=== PATIENT | female | born 1970 | race Caucasian/White ===

== ENCOUNTER 2021-08-08 17:36 | Inpatient (IN) | payer OTHER, SELFPAY ==
--- NOTE | ~2021-08-08 | CT_ITS ---
EXAMINATION: CT ABDOMEN AND PELVIS WITH CONTRAST CLINICAL INFORMATION: Lower abdominal pain COMPARISON: 10/06/2016 TECHNIQUE: Multidetector volumetric images were obtained from the superior aspect of the liver through the pubic symphysis following administration 85 mL of Omnipaque 350 intravenous contrast. Sagittal and coronal reformatted images were obtained on the technologist's workstation. Oral contrast: No This CT examination was performed using dose optimization techniques as appropriate, variously including the following: *Automated exposure control *Adjustment of mA and/or kV according to patient size (this includes techniques or standardized protocols for targeted exams where dose is matched to indication/reason for exam; i.e. extremities or head) *Use of iterative reconstruction technique DLP: 891 mGy-cm FINDINGS: LUNG BASES: The visualized lung bases are unremarkable. LIVER, GALLBLADDER, AND BILIARY TREE: The liver is normal in size, shape, and attenuation. No focal hepatic lesion or biliary ductal dilatation is present. The gallbladder is unremarkable with no evidence of radiopaque gallstones, gallbladder wall thickening, or obvious pericholecystic inflammatory changes. PANCREAS: Unremarkable. SPLEEN: Unremarkable. ADRENAL GLANDS: Unremarkable. KIDNEYS AND URETERS: The kidneys are normal in size, shape, and attenuation. No hydronephrosis, hydroureter, or calculi seen. No perinephric stranding. BLADDER: Unremarkable. GASTROINTESTINAL TRACT: No evidence of bowel obstruction. No abnormal bowel wall thickening is seen. The appendix is fluid-filled and dilated to approximately 1.2 cm. Few appendicoliths are noted, and there is surrounding fat stranding suspicious for acute appendicitis. No free fluid or free air is seen. ABDOMINAL WALL: No significant hernia is appreciated. LYMPH NODES: Normal. VASCULAR: Unremarkable. PELVIC VISCERA: Right adnexal cyst measures approximately 3 cm, likely ovarian and physiologic. OSSEOUS STRUCTURES: There is facet arthropathy of the lower lumbar spine. CT/CT abdomen pelvis w con IMPRESSION: Findings suspicious for acute appendicitis as described above. Fleischner guidelines were followed.
[2021-08-08 19:45] VITALS: BP 156/87; PULSE 104; RESP 16; TEMP 36.8; O2SAT 98; BMI 39.9
--- NOTE | 2021-08-08 23:50 | ED.ABDPAIN ---
HPI - Abdominal Pain General Chief Complaint: Abdominal Pain Stated Complaint: stomach pains/nausea Time Seen by Provider: 08/08/21 21:30 Source: patient Mode of arrival: ambulatory History of Present Illness HPI narrative: 50-year-old female who presents with mid abdominal discomfort that started approximately 1230 this afternoon is been associated with significant amount of nausea. Patient states that the pain kind of comes in waves and reports she does have a history of renal colic as well as having a history of . She states that she had a bowel movement this morning but has reported decreased flatus throughout the day. She reports chills. Related Data Allergies Allergy/AdvReac Type Severity Reaction Status Date / Time No Known Allergies Allergy Unverified 12/25/19 16:00 [No Known Allergies*] Review of Systems Review of Systems Pertinent positives and negatives as stated in HPI 10 point review of systems is otherwise negative. PMFSH Past Medical History Source: nursing notes reviewed Social History Social History Alcohol intake: former Patient Tobacco Use Status: Never used Tobacco Smoked in Last 30 Days: No Use of substances other than those prescribed or required for medical reasons: No Advance Directives: No Advance Directives Information Provided: Yes Physical Exam ED Vital Signs: Vital Signs - 24 hr 08/08/21 19:45 08/09/21 00:20 08/09/21 02:43 Temperature 98.3 F 99.1 F Pulse Rate 104 H 73 71 Respiratory Rate 16 18 14 Blood Pressure 156/87 H 136/77 126/67 Pulse Oximetry 98 100 98 BMI result Body Mass Index 39.9 VITAL SIGNS: Reviewed. GENERAL: Well developed, well nourished, in no acute distress. HEAD: Normocephalic/atraumatic EYES: PERRLA, EOMI EARS: Ext canals without abnormality OROPHARYNX: no oral lesions noted, posterior pharynx clear LUNGS: Normal breath sounds. No adventitious sounds or accessory muscle use. SpO2<98> CARDIOVASCULAR: Regular rate and rhythm without noted murmurs ABDOMEN: Soft, pain on palpation across lower abdomen without rebound, non-distended with hypoactive bowel sounds. MUSCULOSKELETAL: No tenderness, deformities, or effusions noted on gross inspection. EXTREMITIES: No cyanosis, clubbing or edema. SKIN: Inspection of the skin reveals no rashes NEUROLOGIC: Alert and oriented x 4. Strength and sensation to light touch were grossly intact x 4. Course Course Course Narrative: 50-year-old female with history and clinical presentation suggestive of possible SBO, diverticulitis, but doubt renal colic at this time. 0130: I suspect infection Review of all investigations consistent with acute appendicitis. MDM - Abdominal Pain Lab Data Result diagrams: 08/09/21 00:03 08/09/21 00:03 Labs: Lab Results 08/09/21 08/09/21 08/09/21 Range/Units 00:03 00:03 00:03 WBC 11.4 H (4.8-10.8) X10*3/uL RBC 4.21 (4.20-5.50) X10*6/uL Hgb 10.9 L (12.0-16.0) g/dl Hct 33.6 L (37.0-47.0) % MCV 79.8 L (80.0-98.0) fL MCH 25.9 L (27.0-33.0) pg MCHC 32.4 (31.0-35.0) g/dl RDW 15.4 (11.0-16.0) % Plt Count 244 (160-400) X10*3/uL MPV 10.3 (9.4-12.3) fL Immature Gran % (Auto) 0.3 (0.0-0.4) % Neut % (Auto) 82.9 H (45-73) % Lymph % (Auto) 10.5 L (20-40) % [place] % (Auto) 5.9 (2-11) % Eos % (Auto) 0.2 (0-4) % Baso % (Auto) 0.2 (0-2) % Lymph # (Auto) 1.2 (1.2-4.9) X10*3/uL [place] # (Auto) 0.7 (0.1-1.2) X10*3/uL Eos # (Auto) 0.0 (0.0-0.4) X10*3/uL Baso # (Auto) 0.0 (0.0-0.2) X10*3/uL Abs Immat Gran (auto) 0.04 H (0.00-0.03) X10*3/uL Absolute Neuts (auto) 9.5 H (2.0-8.3) x10*3/uL Absolute Nucleated RBC 0.000 (0.0-0.012) X10*3/uL Nucleated RBC % (auto) 0.0 (0.0-0.2) /100WBC Sodium 136 (135-145) mmol/L Potassium 3.5 (3.3-5.1) mmol/L Chloride 102 (96-108) mmol/L Carbon Dioxide 25 (22-29) mmol/L Anion Gap 13 (12-20) BUN 7 L (9-16) mg/dL Creatinine 0.77 (0.5-1.4) mg/dL Estim Creat Clear Calc 98.2 Estimated GFR > 60 Random Glucose 110 (60-115) mg/dL Lactic Acid 1.0 (0.5-2.0) mmol/L Calcium 9.3 (8.4-10.2) mg/dL Total Bilirubin 0.7 (0.0-1.0) mg/dL AST 14 (5-31) U/L ALT 15 (0-31) U/L Alkaline Phosphatase 76 (39-117) U/L Total Protein 7.7 (6.5-8.0) g/dL Albumin 4.2 (3.5-5.0) g/dL Lipase 12 (8-78) U/L Urine Color Urine Appearance Urine pH (5.0-8.0) Ur Specific [place] (1.005-1.025) Urine Protein (NEG-TRACE) MG/DL Urine Glucose (UA) (NEG) MG/DL Urine Ketones (NEG) MG/DL Urine Blood (NEG) Urine Nitrite (NEG) Ur Leukocyte Esterase (NEG) Urine Test (NEGATIVE) 08/09/21 08/09/21 Range/Units 00:03 00:03 WBC (4.8-10.8) X10*3/uL RBC (4.20-5.50) X10*6/uL Hgb (12.0-16.0) g/dl Hct (37.0-47.0) % MCV (80.0-98.0) fL MCH (27.0-33.0) pg MCHC (31.0-35.0) g/dl RDW (11.0-16.0) % Plt Count (160-400) X10*3/uL MPV (9.4-12.3) fL Immature Gran % (Auto) (0.0-0.4) % Neut % (Auto) (45-73) % Lymph % (Auto) (20-40) % [place] % (Auto) (2-11) % Eos % (Auto) (0-4) % Baso % (Auto) (0-2) % Lymph # (Auto) (1.2-4.9) X10*3/uL [place] # (Auto) (0.1-1.2) X10*3/uL Eos # (Auto) (0.0-0.4) X10*3/uL Baso # (Auto) (0.0-0.2) X10*3/uL Abs Immat Gran (auto) (0.00-0.03) X10*3/uL Absolute Neuts (auto) (2.0-8.3) x10*3/uL Absolute Nucleated RBC (0.0-0.012) X10*3/uL Nucleated RBC % (auto) (0.0-0.2) /100WBC Sodium (135-145) mmol/L Potassium (3.3-5.1) mmol/L Chloride (96-108) mmol/L Carbon Dioxide (22-29) mmol/L Anion Gap (12-20) BUN (9-16) mg/dL Creatinine (0.5-1.4) mg/dL Estim Creat Clear Calc Estimated GFR Random Glucose (60-115) mg/dL Lactic Acid (0.5-2.0) mmol/L Calcium (8.4-10.2) mg/dL Total Bilirubin (0.0-1.0) mg/dL AST (5-31) U/L ALT (0-31) U/L Alkaline Phosphatase (39-117) U/L Total Protein (6.5-8.0) g/dL Albumin (3.5-5.0) g/dL Lipase (8-78) U/L Urine Color YELLOW Urine Appearance CLEAR Urine pH 7.5 (5.0-8.0) Ur Specific [place] 1.015 (1.005-1.025) Urine Protein NEG (NEG-TRACE) MG/DL Urine Glucose (UA) NEG (NEG) MG/DL Urine Ketones 5 (NEG) MG/DL Urine Blood NEG (NEG) Urine Nitrite NEG (NEG) Ur Leukocyte Esterase NEG (NEG) Urine Test NEGATIVE (NEGATIVE) Discharge Plan Discharge Clinical Impression: Acute appendicitis Patient Disposition: Admitted As Inpatient
[2021-08-09] VITALS (15 sets, daily range): BP systolic 118–141; BP diastolic 52–78; PULSE 63–93; RESP 14–20; TEMP 36.2–37.3; O2SAT 94–100
[2021-08-09 00:12] LABS: MANUAL DIFF FLAG NO
[2021-08-09 00:14] LABS: Basophils Percent Auto 0.2 % (0-2); Eosinophils Percent Auto 0.2 % (0-4); Hematocrit 33.6 % (37.0-47.0); Hemoglobin 10.9 g/dl (12.0-16.0); Imm Gran Abs Auto 0.04 X10*3/uL (0.00-0.03); Imm Gran Pct Auto 0.3 % (0.0-0.4); Lymphocytes Absolute Auto 1.2 X10*3/uL (1.2-4.9); Lymphocytes Percent Auto 10.5 % (20-40); Mean Corpuscular HGB Conc 32.4 g/dl (31.0-35.0); Mean Corpuscular Hemoglobin 25.9 pg (27.0-33.0); Mean Corpuscular Volume 79.8 fL (80.0-98.0); Mean Platelet Volume 10.3 fL (9.4-12.3); Monocytes Absolute Auto 0.7 X10*3/uL (0.1-1.2); Monocytes Percent Auto 5.9 % (2-11); Neutrophils Absolute Auto 9.5 x10*3/uL (2.0-8.3); Neutrophils Percent Auto 82.9 % (45-73); Platelet Count 244 X10*3/uL (160-400); Red Blood Count 4.21 X10*6/uL (4.20-5.50); Red Cell Distribution Width 15.4 % (11.0-16.0); White Blood Count 11.4 X10*3/uL (4.8-10.8)
[2021-08-09] MEDS: Ketorolac Tromethamine 30 MG/ML VIAL 15 MG IVPUSH (00:14)
[2021-08-09 00:21] LABS: Appearance Urine CLEAR; Color Urine YELLOW; Glucose Urine UA NEG (NEG); Leukocyte Esterase Urine NEG (NEG); Nitrite Urine NEG (NEG); PH 7.5 (5.0-8.0); Specific Gravity - Urine 1.015 (1.005-1.025); Urine Blood NEG (NEG); Urine Ketones 5 MG/DL (NEG); Urine Protein NEG (NEG-TRACE)
[2021-08-09 00:22] LABS: UPreg QC Valid YES; Urine Pregnancy NEGATIVE (NEGATIVE)
[2021-08-09 00:28] LABS: Alanine Aminotransferase 15 U/L (0-31); Albumin Level 4.2 g/dL (3.5-5.0); Alkaline Phosphatase 76 U/L (39-117); Anion Gap 13 (12-20); Aspartate Amino Transferase 14 U/L (5-31); Bilirubin Total 0.7 mg/dL (0.0-1.0); Blood Urea Nitrogen 7 mg/dL (9-16); Calcium 9.3 mg/dL (8.4-10.2); Carbon Dioxide 25 mmol/L (22-29); Chloride 102 mmol/L (96-108); Creatinine Clr Calc Pharmacy 98.2; Estimated Glomerular Filt Rate > 60; Glucose Random 110 mg/dL (60-115); Lipase 12 U/L (8-78); Potassium 3.5 mmol/L (3.3-5.1); Sodium 136 mmol/L (135-145); Total Protein 7.7 g/dL (6.5-8.0)
[2021-08-09] MEDS: 0.9 % Sodium Chloride 1,000 ML 999 ML IV (01:30)
[2021-08-09] MEDS: iohexoL 350 MG/ML 100 ML INFUS..BTL 85 ML IV (01:54)
--- NOTE | 2021-08-09 03:06 | PM.HPGS ---
History of Present Illness History of Present Illness Date of Service: 08/09/21 Chief complaint: Acute Appendicitis Narrative: Shari Gonzales is a 50 year old female presenting with complaints of abdominal pain in the lower abdomen since 12 pm yesterday. She intially thought the pain was related to kidney stones which she has had in the past. The pain was much more severe and associated with nausea and vomiting therefore she subsequently presented to the emergency department for further evaluation. She reports the pain mainly in the periumbilical region radiating into the lower quadrants bilaterally. The pain increases with movement and walking. She denied fever or chills. In the emergency department she was noted to have an elevated WBC. CT of the abdomen pelvis confirmed a dilated/fluid-filled appendix with a fecalith suggestive of acute appendicitis. Review of Systems Constitutional: Constitutional: Denies chills, Denies fever(s), Denies headache(s) and Reports poor appetite ENT: Denies dizziness and Denies headache(s) Cardiovascular: Cardiovascular: Denies chest pain, Denies rapid heart rate, Denies palpitations and Denies slow heart rate Respiratory: Respiratory: Denies chest congestion, Denies cough, Denies pain on inspiration and Denies wheezing Gastrointestinal: Gastrointestinal: Reports abdominal pain, Denies bloating, Denies change in stool character, Denies constipation, Denies diarrhea, Reports nausea, Reports vomiting and Denies hematemesis Musculoskeletal: Musculoskeletal: Denies back pain, Denies arthralgias, Denies joint swelling and Denies numbness Integumentary/Breasts: Skin/Breast: Denies change in pigmentation, Denies erythema and Denies rash Neurologic: Denies dizziness, Denies headache(s) and Denies numbness Psychiatric: Psychiatric: Denies anxiety and Denies depression Endocrine: Endocrine: Denies palpitations Hematologic/Lymphatic: Hematologic/Lymphatic: Denies easy bleeding, Denies easy bruising and Denies lymphadenopathy Allergic/Immunologic: Allergic/Immunologic: Denies wheezing PMFSH Past Medical History Medical History Nephrolithiasis Surgical History Surgical History Previous section Social History Social History Alcohol intake: former Patient Tobacco Use Status: Never used Tobacco Smoked in Last 30 Days: No Use of substances other than those prescribed or required for medical reasons: No Advance Directives: No Advance Directives Information Provided: Yes Meds Allergies Allergy/AdvReac Type Severity Reaction Status Date / Time No Known Allergies Allergy Unverified 12/25/19 16:00 [No Known Allergies*] Active Medications: Current Medications Piperacillin Sod/Tazobactam (Sod 3.375 gm/ Sodium Chloride) 50 mls @ 100 mls/hr IV ONCE ONE Stop: 08/09/21 03:18 Home Medications Medication Instructions Recorded Confirmed Last Taken Type amlodipine 5 mg tablet 1 tab PO DAILY 08/09/21 Unknown History ascorbic acid (vitamin C) 500 mg 1 tab PO DAILY 08/09/21 Unknown History tablet (Vitamin C) citalopram 20 mg tablet 1 tab PO DAILY 08/09/21 Unknown History folic acid 400 mcg tablet 1 tab PO DAILY 08/09/21 Unknown History metformin 500 mg tablet,extended 2 tab PO DAILY 08/09/21 Unknown History release 24 hr metoprolol succinate 25 mg 1 tab PO DAILY 08/09/21 Unknown History tablet,extended release 24 hr omeprazole 20 mg capsule,delayed 1 cap PO DAILY 08/09/21 Unknown History release polysaccharide iron complex 150 mg 1 cap PO DAILY 08/09/21 Unknown History iron capsule sennosides 8.6 mg-docusate sodium 1 - 2 tab PO BEDTIME PRN 08/09/21 Unknown History 50 mg tablet (Senna Plus) trazodone 50 mg tablet 1 tab PO DAILY 08/09/21 Unknown History Physical Exam Vital Signs: Vital Signs: Last Vital Signs Temp 99.1 F 08/09/21 00:20 Pulse 71 08/09/21 02:43 Resp 14 08/09/21 02:43 BP 126/67 08/09/21 02:43 Pulse Ox 98 08/09/21 02:43 BMI result Body Mass Index 39.9 Const: General: cooperative, comfortable and well developed Nutritional Appearance: well nourished Orientation/consciousness: patient oriented x3 Eyes: Sclerae: sclerae normal EOM: EOMs intact bilaterally Neck: Neck: Yes normal visual inspection Resp: Effort & Inspection: normal respiratory effort, no cough, no respiratory distress and no stridor Cardio: Jugular venous distension: no JVD GI: Inspection: Yes normal to inspection Palpation (GI): Soft to palpation, Tenderness to palpation present (GI) in the RLQ, at McBurney's point and Rovsing's sign positive, no guarding and not rigid Percussion: Yes normal to percussion Auscultation: normal bowel sounds Rectal Exam - Female: deferred Skin: General skin exam: no rashes or lesions noted Neuro: General: patient oriented x3 and no focal motor deficits Extrem: General: Yes full ROM and Yes no clubbing, cyanosis or edema Psych: Appearance: grossly normal Results Results Labs: Short CBC 08/09/21 Range/Units 00:03 WBC 11.4 H (4.8-10.8) X10*3/uL Hgb 10.9 L (12.0-16.0) g/dl Hct 33.6 L (37.0-47.0) % Plt Count 244 (160-400) X10*3/uL BMP 08/09/21 00:03 Sodium 136 Potassium 3.5 Chloride 102 Carbon Dioxide 25 BUN 7 L Creatinine 0.77 Calcium 9.3 Liver Function 08/09/21 Range/Units 00:03 Total Bilirubin 0.7 (0.0-1.0) mg/dL AST 14 (5-31) U/L ALT 15 (0-31) U/L Alkaline Phosphatase 76 (39-117) U/L Albumin 4.2 (3.5-5.0) g/dL Urine 08/09/21 08/09/21 Range/Units 00:03 00:03 Urine Color YELLOW Urine Appearance CLEAR Urine pH 7.5 (5.0-8.0) Ur Specific [place] 1.015 (1.005-1.025) Urine Protein NEG (NEG-TRACE) MG/DL Urine Glucose (UA) NEG (NEG) MG/DL Urine Test NEGATIVE (NEGATIVE) Assessment and Plan (1) Acute appendicitis: Status: Acute Plan 50-year-old female patient presenting with lower abdominal pain since yesterday afternoon which increases in severity with motion. On examination she is tender in right lower quadrant with localized rebound and positive Rovsing sign. She is found to have an elevated WBC and CT is positive for acute appendicitis. A fecalith is noted within the appendix therefore laparoscopic or possible open appendectomy is recommended. After discussion of the procedure, risks, and alternatives, she consents to a laparoscopic or possible open appendectomy. She has been added onto the operative schedule for today. Quality Stroke Does the patient have a stroke diagnosis?: No VTE Prior VTE?: No VTE Risk Level:: Surgical - moderate VTE Device Contraindication: N/A - Device Ordered VTE Drug Contraindication: Treatment Not Indicated Procedures Date of Service Date of Service: 08/09/21
[2021-08-09] MEDS: HYDROmorphone HCl 0.5 MG/0.5 ML SYRINGE 0.25 MG IVPUSH (03:25)
[2021-08-09] MEDS: Piperacillin Sodium/Tazobactam 3.375 GM in 0.9 % Sodium Chloride 50 ML IV ×2 (03:25→09:16)
[2021-08-09 03:35] LABS: COVID-19 Test Positive (Negative)
[2021-08-09] MEDS: Dextrose 5 % and Lactated Ring 1,000 ML 125 ML IVCONT ×2 (04:58→20:12)
[2021-08-09 07:35] LABS: MANUAL DIFF FLAG NO
[2021-08-09 07:39] LABS: Basophils Percent Auto 0.4 % (0-2); Eosinophils Percent Auto 0.5 % (0-4); Hematocrit 29.3 % (37.0-47.0); Hemoglobin 9.4 g/dl (12.0-16.0); Imm Gran Abs Auto 0.04 X10*3/uL (0.00-0.03); Imm Gran Pct Auto 0.5 % (0.0-0.4); Lymphocytes Absolute Auto 1.5 X10*3/uL (1.2-4.9); Lymphocytes Percent Auto 18.6 % (20-40); Mean Corpuscular HGB Conc 32.1 g/dl (31.0-35.0); Mean Corpuscular Hemoglobin 25.6 pg (27.0-33.0); Mean Corpuscular Volume 79.8 fL (80.0-98.0); Mean Platelet Volume 10.7 fL (9.4-12.3); Monocytes Absolute Auto 0.8 X10*3/uL (0.1-1.2); Monocytes Percent Auto 9.6 % (2-11); Neutrophils Absolute Auto 5.6 x10*3/uL (2.0-8.3); Neutrophils Percent Auto 70.4 % (45-73); Platelet Count 207 X10*3/uL (160-400); Red Blood Count 3.67 X10*6/uL (4.20-5.50); Red Cell Distribution Width 15.5 % (11.0-16.0); White Blood Count 7.9 X10*3/uL (4.8-10.8)
--- NOTE | 2021-08-09 07:51 | PHA.MEDREC ---
Pharmacy Consult ? Medication Reconciliation Pharmacy has completed the medication reconciliation. Patient is titrating down on toprol while she goes up on norvasc. Thanks Elie
--- NOTE | 2021-08-09 07:55 | PC.NURSE ---
pt a&ox3, vss, pt c/o 10/16 abd pain. medicated per provider order. report given to SSS. no new orders at this time.
[2021-08-09] MEDS: HYDROmorphone HCl 1 MG/ML SYRINGE 0.5 MG IVPUSH ×2 (08:27→12:25)
--- NOTE | 2021-08-09 08:30 | PC.NURSE ---
pt a&ox3, vss, pt c/o 10/16 abd pain. medicated per provider order. report given to SSS. no new orders at this time.
[2021-08-09 08:34] LABS: Anion Gap 12 (12-20); Blood Urea Nitrogen 7 mg/dL (9-16); Calcium 8.6 mg/dL (8.4-10.2); Carbon Dioxide 24 mmol/L (22-29); Chloride 106 mmol/L (96-108); Estimated Glomerular Filt Rate > 60; Glucose Random 104 mg/dL (60-115); Potassium 3.6 mmol/L (3.3-5.1); Sodium 138 mmol/L (135-145)
--- NOTE | 2021-08-09 09:17 | PC.NURSE ---
IVF paused, medicated per provider order.
--- NOTE | 2021-08-09 11:01 | PC.NURSE ---
D5LR restarted @ 125ml/hr. no new orders at this time.
--- NOTE | 2021-08-09 12:19 | MHC.CM.PN ---
Attempted to meet with patient in regards to discharge planning. Patient not currently in room. Will attempt to meet again. Continue to monitor for d/c needs.
--- NOTE | 2021-08-09 12:29 | PC.NURSE ---
pt c/o 10/16 abd pain, medicated per provider order. D5LR running at 125ml/hr.
--- NOTE | 2021-08-09 14:43 | PC.NURSE ---
pt changed over for surgery, belongings list completed.
--- NOTE | 2021-08-09 16:20 | HO.ANESPROP2 ---
HPI - Anesthesia Eval Consult details Narrative: Acute appendicitis PMFSH Active Problems Active Problems: All Active Problems (Updated 08/09/21 @ 07:43 by Calvin Valentino MD) Acute appendicitis (Acute) Past Medical History Medical History (Updated 08/09/21 @ 18:17 by Wenceslao Mckay MD) Anxiety Hypertension Insomnia Nephrolithiasis Obesity Polycystic bilateral ovaries Family History Family history of problems with anesthesia: No Surgical History Surgical History Previous section History of Problems with Anesthesia: No Social History Social History Alcohol intake: former Patient Tobacco Use Status: Never used Tobacco Meds Allergies Allergy/AdvReac Type Severity Reaction Status Date / Time No Known Allergies Allergy Unverified 12/25/19 16:00 [No Known Allergies*] Active Medications: Current Medications Acetaminophen (Acetaminophen 325 Mg Tablet) 650 mg PO QID PRN PRN Reason: headache, temp > 101 Hydromorphone HCl (Hydromorphone Hcl 1 Mg/Ml Syringe) 0.5 mg IVPUSH Q3H PRN; Protocol PRN Reason: Pain, Severe (Pain Scale 7-10) Last Admin: 08/09/21 12:25 Dose: 0.5 mg Documented by: Dextrose/Lactated Ringer's (D5lr) 1,000 mls @ 125 mls/hr IVCONT .Q8H [facility] Last Admin: 08/09/21 04:58 Dose: 125 mls/hr Documented by: Piperacillin Sod/Tazobactam (Sod 3.375 gm/ Sodium Chloride) 50 mls @ 100 mls/hr IV Q6H [facility] Last Infusion: 08/09/21 11:00 Dose: Infused Documented by: Ondansetron HCl (Ondansetron Hcl 4 Mg/2 Ml Vial) 4 mg IVPUSH QID PRN PRN Reason: Nausea Oxycodone HCl (Oxycodone Hcl Immed Release 5 Mg Tablet) 5 mg PO Q6H PRN PRN Reason: Pain, Moderate (Pain Scale 4-6 Pharmacy Consult (Consult Rx Perform Med Rec) 1 each MISCELLANE ONCE PRN PRN Reason: Consult order Sodium Chloride (0.9 % Sodium Chloride Flush 3 Ml Syringe) 3 ml IVFLUSH QSHIFT [facility] Last Admin: 08/09/21 07:21 Dose: Not Given Documented by: Zolpidem Tartrate (Zolpidem Tartrate 5 Mg Tablet) 5 mg PO BEDTIME PRN PRN Reason: Insomnia Home Medications Medication Instructions Recorded Confirmed Last Taken Type amlodipine 5 mg tablet 1 tab PO DAILY 08/09/21 08/09/21 08/07/21 History ascorbic acid (vitamin C) 500 mg 1 tab PO DAILY 08/09/21 08/09/21 08/07/21 History tablet (Vitamin C) citalopram 20 mg tablet 1 tab PO DAILY 08/09/21 08/09/21 08/07/21 History folic acid 400 mcg tablet 1 tab PO DAILY 08/09/21 08/09/21 08/07/21 History metformin 500 mg tablet,extended 2 tab PO DAILY 08/09/21 08/09/21 08/07/21 History release 24 hr metoprolol succinate 25 mg 1 tab PO DAILY 08/09/21 08/09/21 08/07/21 History tablet,extended release 24 hr multivitamin 1 tab PO DAILY 08/09/21 08/09/21 08/07/21 History omeprazole 20 mg capsule,delayed 1 cap PO DAILY 08/09/21 08/09/21 08/07/21 History release polysaccharide iron complex 150 mg 1 cap PO DAILY 08/09/21 08/09/21 08/07/21 History iron capsule sennosides 8.6 mg-docusate sodium 1 - 2 tab PO BEDTIME PRN 08/09/21 08/09/21 08/07/21 History 50 mg tablet (Senna Plus) trazodone 50 mg tablet 1 tab PO BEDTIME PRN 08/09/21 08/09/21 08/07/21 History Exam Exam Date and Time: August 09, 2021 1620 Height,Weight and Vital Signs: Height 5 ft 2 in Weight 98.883 kg Last Vital Signs Temp 99.1 F 08/09/21 00:20 Pulse 64 08/09/21 14:05 Resp 16 08/09/21 14:05 BP 129/74 08/09/21 14:05 Pulse Ox 98 08/09/21 14:05 Pertinent Lab Results Pertinent Lab Results: Laboratory Tests 08/09/21 08/09/21 08/09/21 00:03 00:03 00:03 WBC 11.4 H RBC 4.21 Hgb 10.9 L Hct 33.6 L MCV 79.8 L MCH 25.9 L MCHC 32.4 RDW 15.4 Plt Count 244 MPV 10.3 Immature Gran % (Auto) 0.3 Neut % (Auto) 82.9 H Lymph % (Auto) 10.5 L [place] % (Auto) 5.9 Eos % (Auto) 0.2 Baso % (Auto) 0.2 Lymph # (Auto) 1.2 [place] # (Auto) 0.7 Eos # (Auto) 0.0 Baso # (Auto) 0.0 Abs Immat Gran (auto) 0.04 H Absolute Neuts (auto) 9.5 H Absolute Nucleated RBC 0.000 Nucleated RBC % (auto) 0.0 Sodium 136 Potassium 3.5 Chloride 102 Carbon Dioxide 25 Anion Gap 13 BUN 7 L Creatinine 0.77 Estim Creat Clear Calc 98.2 Estimated GFR > 60 Random Glucose 110 Lactic Acid 1.0 Calcium 9.3 Total Bilirubin 0.7 AST 14 ALT 15 Alkaline Phosphatase 76 Total Protein 7.7 Albumin 4.2 Lipase 12 Urine Color Urine Appearance Urine pH Ur Specific [place] Urine Protein Urine Glucose (UA) Urine Ketones Urine Blood Urine Nitrite Ur Leukocyte Esterase Urine Test COVID-19 (JULIO CESAR) COVID-19 [employer] 08/09/21 08/09/21 08/09/21 00:03 00:03 03:20 WBC RBC Hgb Hct MCV MCH MCHC RDW Plt Count MPV Immature Gran % (Auto) Neut % (Auto) Lymph % (Auto) [place] % (Auto) Eos % (Auto) Baso % (Auto) Lymph # (Auto) [place] # (Auto) Eos # (Auto) Baso # (Auto) Abs Immat Gran (auto) Absolute Neuts (auto) Absolute Nucleated RBC Nucleated RBC % (auto) Sodium Potassium Chloride Carbon Dioxide Anion Gap BUN Creatinine Estim Creat Clear Calc Estimated GFR Random Glucose Lactic Acid Calcium Total Bilirubin AST ALT Alkaline Phosphatase Total Protein Albumin Lipase Urine Color YELLOW Urine Appearance CLEAR Urine pH 7.5 Ur Specific [place] 1.015 Urine Protein NEG Urine Glucose (UA) NEG Urine Ketones 5 Urine Blood NEG Urine Nitrite NEG Ur Leukocyte Esterase NEG Urine Test NEGATIVE COVID-19 (JULIO CESAR) Positive A COVID-19 Clin Com See Note 05/03/22 05/03/22 07:15 07:15 WBC 7.9 RBC 3.67 L Hgb 9.4 L Hct 29.3 L MCV 79.8 L MCH 25.6 L MCHC 32.1 RDW 15.5 Plt Count 207 MPV 10.7 Immature Gran % (Auto) 0.5 H Neut % (Auto) 70.4 Lymph % (Auto) 18.6 L [place] % (Auto) 9.6 Eos % (Auto) 0.5 Baso % (Auto) 0.4 Lymph # (Auto) 1.5 [place] # (Auto) 0.8 Eos # (Auto) 0.0 Baso # (Auto) 0.0 Abs Immat Gran (auto) 0.04 H Absolute Neuts (auto) 5.6 Absolute Nucleated RBC 0.000 Nucleated RBC % (auto) 0.0 Sodium 138 Potassium 3.6 Chloride 106 Carbon Dioxide 24 Anion Gap 12 BUN 7 L Creatinine 0.72 Estim Creat Clear Calc 105.0 Estimated GFR > 60 Random Glucose 104 Lactic Acid Calcium 8.6 D Total Bilirubin AST ALT Alkaline Phosphatase Total Protein Albumin Lipase Urine Color Urine Appearance Urine pH Ur Specific [place] Urine Protein Urine Glucose (UA) Urine Ketones Urine Blood Urine Nitrite Ur Leukocyte Esterase Urine Test COVID-19 (JULIO CESAR) COVID-19 Clin Com Airway Mallampati Class: II TM Dist: >3cm Neck ROM: Full Loose/Missing/Broken Teeth: No Heart: RRR Lungs: CTA Assessment and Plan Final Anesthetic Review Family History of Problems with Anesthesia: No History of Problems with Anesthesia: No NPO: Yes ASA Class: III Final Preanesthetic Review: No Changes in Pt Med Stat, Meds/Allgs Chart Reviewed, Consent Obtained/Reviewed and Anes Risks/Benef Reviewed Patient Risk: Intermediate Procedure Risk: Intermediate Anesthetic Plan Anesthetic Plan: GA Disposition: Standard PACU
--- NOTE | 2021-08-09 18:14 | P.OP_ITS ---
Operative Note Operative Note Date of Service: 08/09/21 Narrative: Preoperative diagnosis: Acute appendicitis Postoperative diagnosis: Same Procedure: Laparoscopic appendectomy Surgeon: Calvin Valentino MD Director Of Spa And Guest Experience:none Anesthesia: General endotracheal Indications for procedure:50 year old female presenting with pain in the lower abdomen for 24 hours, found to have an elevated WBC and thick dilated gallbladder on CT. Findings consistent with acute appendicitis Operative findings:Dilated and inflamed appendix in the RLQ; no perforation Specimen:appendix Estimated blood loss:1 ml Complications: none Procedure details: Patient was brought to the OR and placed in a supine position. After administering general anesthesia the patient's abdomen was prepped with ChloraPrep and draped in a sterile fashion. A surgical time-out was called and consent confirmed. Patient received preoperative antibiotics and Venodyne boots were in place. Local anesthesia consisting of 0.25% Sensorcaine was infiltrated in periumbilical region. A 5 mm incision was made below the umbilicus and carried down through subcutaneous tissue. A Veress needle was then inserted while elevating abdominal cavity with towel clips. After a positive drop test the abdomen was insufflated to a pressure of 15 mm of mercury. The Veress needle was removed and a 5 mm trocar inserted. The camera was then inserted in the abdomen explored. A 2nd 5 mm trocars placed in the lower midline. A 12 mm trocar was then placed in the left lower quadrant. The patient was then placed in a Trendelenburg position and rotated to the left. The appendix was identified in the right lower quadrant and brought up using blunt dissecting clamps. The mesentery of the appendix was then divided using the LigaSure. The appendiceal artery was cauterized and divided using the LigaSure. Dissection was continued down to the base of the cecum. An Endo-PETERSON stapler with a purple reload was then used to divide the appendix at the base with the cecum. The appendix was then placed in Endo-Catch bag and brought out through the left lower quadrant incision. The abdomen was then irrigated with saline solution and suctioned dry. Wounds were checked for hemostasis. CO2 was then evacuated from the abdominal cavity and all trocars removed. Fascia was closed in the left lower quadrant incision using a [id number] 0 Polysorb suture. Skin was closed at all incisions using a subcuticular 4-0 Polysorb suture. Steri-Strips 2 x 2 gauze and Tegaderm were then applied. The patient tolerated the procedure well. Sponge, instrument, needle counts reported as correct. The patient was transferred to PACU in stable condition.
[2021-08-09] MEDS: 0.9 % Sodium Chloride Flush 3 ML SYRINGE IVFLUSH (20:11)
[2021-08-09 20:44] LABS: Glucose, Whole Blood 156 mg/dL (60-115)
[2021-08-10] MEDS: Dextrose 5 % and Lactated Ring 1,000 ML 125 ML IVCONT ×2 (06:01→09:15)
[2021-08-10 07:32] VITALS: BP 154/88; PULSE 59; RESP 20; TEMP 36.2; O2SAT 99
[2021-08-10 07:50] LABS: Glucose, Whole Blood 128 mg/dL (60-115)
[2021-08-10] MEDS: Folic Acid 1 MG TABLET 0.5 MG PO (08:55)
[2021-08-10] MEDS: amLODIPine Besylate 5 MG TABLET PO (08:55)
[2021-08-10] MEDS: Ascorbic Acid 500 MG TABLET PO (08:55)
[2021-08-10] MEDS: Metoprolol Succinate ER 25 MG TAB.ER.24H PO (08:55)
[2021-08-10] MEDS: Escitalopram Oxalate 10 MG TABLET PO (08:55)
[2021-08-10] MEDS: Omeprazole 20 MG CAPSULE.DR PO (08:55)
[2021-08-10] MEDS: 0.9 % Sodium Chloride Flush 3 ML SYRINGE IVFLUSH (08:56)
--- NOTE | 2021-08-10 08:56 | MHC.CM.PN ---
Addendum entered by Diana Payne 08/10/21 08:58: VAX Galea x3 Original Note: Female 50 S/P Lap Appy. She is independent all functional mobility. DP home no services family transport.
[2021-08-10] MEDS: Acetaminophen 325 MG TABLET 650 MG PO (09:02)
--- NOTE | 2021-08-10 09:52 | P.PNGS_ITS ---
Subjective Subjective Date of Service: 08/10/21 Interval history: Feels much better this morning. ABd pain is improved, different, incisional and she is comfortable. Tolerating solid diet. OOB to bathroom. Does note some throat discomfort. Physical Exam Vital Signs: Vital Signs: Last Vital Signs Temp 97.1 F 08/10/21 07:32 Pulse 59 08/10/21 07:32 Resp 20 08/10/21 07:32 BP 154/88 H 08/10/21 07:32 Pulse Ox 99 08/10/21 07:32 BMI result Body Mass Index 39.9 Const: General: comfortable, no acute distress and alert Orientation/consciousness: patient oriented x3 Eyes: Sclerae: sclerae normal Resp: Effort & Inspection: normal respiratory effort GI: Inspection: No distended and Yes incision (dressings intact) Palpation (GI): Soft to palpation, Tenderness to palpation present (GI) (mild, incisional), no guarding and not rigid Percussion: Yes normal to percussion Skin: General skin exam: no rashes or lesions noted Neuro: General: patient oriented x3 and moves all extremities Objective Data Active Medications Acetaminophen (Acetaminophen 325 Mg Tablet) 650 mg PO QID PRN PRN Reason: headache, temp > 101 Last Admin: 08/10/21 09:02 Dose: 650 mg Documented by: CHRISTY Amlodipine Besylate (Amlodipine Besylate 5 Mg Tablet) 5 mg PO DAILY [facility]; Protocol Last Admin: 08/10/21 08:55 Dose: 5 mg Documented by: CHRISTY Ascorbic Acid (Ascorbic Acid 500 Mg Tablet) 500 mg PO DAILY [facility] Last Admin: 08/10/21 08:55 Dose: 500 mg Documented by: CHRISTY Dextrose (Dextrose 50 % 25 Gm/50 Ml Syringe) 25 gm IVPUSH Q15M PRN; Protocol PRN Reason: per Hypoglycemia Standing Ord. Escitalopram Oxalate (Escitalopram Oxalate 10 Mg Tablet) 10 mg PO DAILY [facility] Last Admin: 08/10/21 08:55 Dose: 10 mg Documented by: CHRISTY Fentanyl (Fentanyl Citrate/Pf 100 Mcg/2 Ml Vial) 50 mcg IVPUSH Q5M PRN; Protocol PRN Reason: Pain, Severe (Pain Scale 7-10) Folic Acid (Folic Acid 1 Mg Tablet) 0.5 mg PO DAILY [facility] Last Admin: 08/10/21 08:55 Dose: 0.5 mg Documented by: CHRISTY Glucose (Glucose Gel 15 Gm Gel..Gram.) 15 gm PO Q15M PRN; Protocol PRN Reason: per Hypoglycemia Standing Ord. Hydromorphone HCl (Hydromorphone Hcl 1 Mg/Ml Syringe) 0.5 mg IVPUSH Q3H PRN; Protocol PRN Reason: Pain, Severe (Pain Scale 7-10) Last Admin: 08/09/21 12:25 Dose: 0.5 mg Documented by: MADDENL Hydromorphone HCl (Hydromorphone Hcl 0.5 Mg/0.5 Ml Syringe) 0.5 mg IVPUSH Q5M PRN; Protocol PRN Reason: Pain, Severe (Pain Scale 7-10) Dextrose/Lactated Ringer's (D5lr) 1,000 mls @ 125 mls/hr IVCONT .Q8H [facility] Last Admin: 08/10/21 09:15 Dose: 125 mls/hr Documented by: CHRISTY Promethazine HCl 12.5 mg/ (Sodium Chloride) 50.5 mls @ 202 mls/hr IV ONCE PRN PRN Reason: Nausea and Vomiting Insulin Human Lispro (Insulin Lispro 100 Unit/Ml 3 Ml Vial) 0 unit SUBCUT QIDACHS [facility]; Protocol Stop: 08/10/21 18:07 Last Admin: 08/10/21 07:52 Dose: Not Given Documented by: CHRISTY Non-Admin Reason: No Insulin Coverage Metoprolol Succinate (Metoprolol Succinate Er 25 Mg Tab.Er.24h) 25 mg PO DAILY [facility]; Protocol Last Admin: 08/10/21 08:55 Dose: 25 mg Documented by: CHRISTY Omeprazole (Omeprazole 20 Mg Capsule.Dr) 20 mg PO DAILY [facility] Last Admin: 08/10/21 08:55 Dose: 20 mg Documented by: CHRISTY Ondansetron HCl (Ondansetron Hcl 4 Mg/2 Ml Vial) 4 mg IVPUSH QID PRN PRN Reason: Nausea Oxycodone HCl (Oxycodone Hcl Immed Release 5 Mg Tablet) 5 mg PO Q6H PRN PRN Reason: Pain, Moderate (Pain Scale 4-6 Oxycodone HCl (Oxycodone Hcl Immed Release 5 Mg Tablet) 5 mg PO ONCE PRN PRN Reason: Pain, Severe (Pain Scale 7-10) Pharmacy Consult (Consult Rx Perform Med Rec) 1 each MISCELLANE ONCE PRN PRN Reason: Consult order Sodium Chloride (0.9 % Sodium Chloride Flush 3 Ml Syringe) 3 ml IVFLUSH QSHIFT [facility] Last Admin: 08/10/21 08:56 Dose: 3 ml Documented by: CHRISTY Trazodone HCl (Trazodone Hcl 50 Mg Tablet) 50 mg PO BEDTIME PRN PRN Reason: Insomnia Zolpidem Tartrate (Zolpidem Tartrate 5 Mg Tablet) 5 mg PO BEDTIME PRN PRN Reason: Insomnia Labs CBC & Chem 7: 08/09/21 07:15 08/09/21 07:15 Labs: Laboratory Results - last 24 hr 08/09/21 08/10/21 20:39 07:26 POC Glucose 156 H 128 H Microbiology Microbiology Results: Microbiology 08/09/21 00:36 Blood Culture - Preliminary Blood - Venous No growth after 24 hours. 08/09/21 00:03 Blood Culture - Preliminary Blood - Venous No growth after 24 hours. Procedures Date of Service Date of Service: 08/10/21 Progress Note: A&P Assessment and plan (1) Acute appendicitis: Status: Acute (2) S/P laparoscopic appendectomy: Status: Acute Plan 50 year old female admitted with acute appendicitis. She is now POD #1 s/p lap appy. She is doing well- tolerating a solid diet and pain is controlled. VSS. Abd exam benign with appropriate post op tenderness, dressings intact. She is stable for d/c to home today. F/u in office in [address] Valentino. Patient comfortable with plan. Time Spent With Patient Time: Total time spent is greater than 50% in coordination of care (as documented) at patient's floor/unit and/or counseling patient: Quality Stroke Does the patient have a stroke diagnosis?: No VTE Prior VTE?: No VTE Risk Level:: Surgical - moderate VTE Device Contraindication: N/A - Device Ordered VTE Drug Contraindication: Treatment Not Indicated
[2021-08-10 11:20] VITALS: BP 137/63; PULSE 66; RESP 16; TEMP 36.9; O2SAT 95
[2021-08-10 11:39] LABS: Glucose, Whole Blood 108 mg/dL (60-115)
--- NOTE | 2021-08-10 11:48 | MHC.CM.PN ---
Female 50 S/P Lap Appy is discharged home today. No services have been ordered. Patient has arranged for family to transport home.
--- NOTE | 2021-08-10 13:24 | PM.DS ---
DS: Providers Provider Date of Service: 08/10/21 Date of admission: 08/09/21 03:00 Primary care physician: KATELYN Shea Attending physician on admission: Calvin Valentino Attending physician on discharge: Calvin Valentino DS: Diagnosis Discharge Diagnosis (1) Acute appendicitis: Status: Acute (2) S/P laparoscopic appendectomy: Status: Acute DS: Summary Hospital Course Hospital Course: BRIEF HPI: Shari Gonzales is a 50 year old female presenting with complaints of abdominal pain in the lower abdomen since 12 pm yesterday. She intially thought the pain was related to kidney stones which she has had in the past. The pain was much more severe and associated with nausea and vomiting therefore she subsequently presented to the emergency department for further evaluation. She reports the pain mainly in the periumbilical region radiating into the lower quadrants bilaterally. The pain increases with movement and walking. She denied fever or chills. In the emergency department she was noted to have an elevated WBC. CT of the abdomen pelvis confirmed a dilated/fluid-filled appendix with a fecalith suggestive of acute appendicitis. HOSPITAL COURSE: The patient was admitted to the surgical service for further treatment of the acute appendicitis. A fecalith is noted within the appendix therefore laparoscopic or possible open appendectomy was recommended. She consents to laparoscopic or possible open appendectomy. She was added onto the operative schedule for that day. She was COVID 19 positive and therefore precautions were followed. On 08/09/21, a laparoscopic appendectomy was performed by Dr. Valentino without complication. The patient tolerated the procedure well, completed routine recovery in PACU and was admitted post operatively. She had an uncomplicated recovery course. On POD #1, she felt well with adequate pain control. She was tolerating a solid diet. She was ambulating without difficulty. Her abdomen was benign with appropriate post op tenderness and dressings intact. She felt ready for discharge. She was discharged to home in stable condition on 08/10/21. She is to follow up with Dr. Valentino in office in 1 week. Status at Discharge Functional status at discharge: independent ambulation Overall status at discharge: patient is progressing back to baseline Time Spent with Patient Time attestation: Total time spent providing and/or coordinating discharge services: Discharge coordination time: Less than 30 minutes Quality: Safe Use of Opioids Does Pt have an Active Cancer Diagnosis on the Problem List?: No Quality: Stroke Does the patient have a stroke diagnosis?: No Physical Exam Vital Signs: Vital Signs: Last Vital Signs Temp 98.5 F 08/10/21 11:20 Pulse 66 08/10/21 11:20 Resp 16 08/10/21 11:20 BP 137/63 08/10/21 11:20 Pulse Ox 95 08/10/21 11:20 BMI result Body Mass Index 39.9 Const: General: comfortable, no acute distress and alert Orientation/consciousness: patient oriented x3 Resp: Effort & Inspection: normal respiratory effort GI: Inspection: No distended and Yes incision (dressings intact) Palpation (GI): Soft to palpation, Tenderness to palpation present (GI) (mild), no guarding and not rigid Percussion: Yes normal to percussion Skin: General skin exam: no rashes or lesions noted Neuro: General: patient oriented x3 DS: Data Data Completed and Pending Pending studies at discharge: Pending at discharge 08/09/21 17:52 Surgical [PTH] Routine Labs on day of discharge: Laboratory Results - last 24 hr 08/09/21 08/10/21 08/10/21 20:39 07:26 11:18 POC Glucose 156 H 128 H 108 Preliminary micro results at discharge 08/09/21 00:36 Blood Culture - Preliminary Blood - Venous No growth after 24 hours. 08/09/21 00:03 Blood Culture - Preliminary Blood - Venous No growth after 24 hours. Discharge Plan Discharge Patient Disposition: Home, Self-Care Discharge Diagnosis: ACUTE APPENDICITIS Referrals: Conchis Dukes PA [Primary Care Provider] - 1 Week Calvin Valentino MD [Physician] - 1 Week Discharge Medications: New oxycodone 5 mg tablet 5 mg PO Q4H PRN (Reason: pain (scale score 7-10)) Qty: 24 0RF Continued trazodone 50 mg tablet 1 tab PO BEDTIME PRN (Reason: Insomnia) 0RF polysaccharide iron complex 150 mg iron capsule 1 cap PO DAILY 0RF sennosides-docusate sodium [Senna Plus] 8.6-50 mg tablet 1 - 2 tab PO BEDTIME PRN (Reason: Constipation) 0RF amlodipine 5 mg tablet 1 tab PO DAILY 0RF folic acid 400 mcg tablet 1 tab PO DAILY 0RF citalopram 20 mg tablet 1 tab PO DAILY 0RF ascorbic acid (vitamin C) [Vitamin C] 500 mg tablet 1 tab PO DAILY 0RF omeprazole 20 mg capsule,delayed release(DR/EC) 1 cap PO DAILY 0RF metoprolol succinate 25 mg tablet extended release 24 hr 1 tab PO DAILY 0RF metformin 500 mg tablet extended release 24 hr 2 tab PO DAILY 0RF multivitamin Tablet 1 tab PO DAILY 0RF Discharge Orders: Discharge Order (Routine); Ordered 08/10/21 Ordered By: Hannah Segovia Diet: advance to usual diet Activity on Discharge: No heavy lifting Stand Alone Forms: Patient Portal Discharge page Activity Restrictions/Additional Instructions: If the incision area is tender, you may apply an ice pack for short intervals (No more than 20 minutes on, followed by at least 20 minutes off). Do not apply heat. Do not use creams, lotions, or topical antibiotics unless instructed to do so by your surgeon. These can cause infection or allergic reaction. Ok to shower. Remove clear dressings 3 days following your procedure. You have steri strips (small white cloth strips) covering your incision- these will fall off ~1 week. No heavy lifting (>10lbs) or strenuous activity! Follow up in office with Dr. Valentino in 1 week. ([phone]) Call Your Doctor If: -Your temperature exceeds 101.5? F -You experience excessive pain or swelling -You have an unexpected reaction to medication -You have excessive bleeding -You experience continued vomiting/nausea -Your incision begins to separate -Your incision shows signs of infection such as increased redness, swelling, excessive pain, drainage (light blood or clear fluid is normal) or heat Care Plan Goals: Return to baseline health and gradual return to activity following recovery period. Health Concerns: acute appendicitis Plan of Treatment: s/p laparoscopic appendectomy oral analgesics f.u in office Assessment: Doing well post op Patient Instructions: Laparoscopic Appendectomy (DC)
--- NOTE | 2021-08-10 15:23 | HO.POSTANES ---
Post Anesthesia Evaluation Post Anesthesia Evaluation Vital Signs: Vital Signs Temp Pulse Resp BP Pulse Ox 08/10/21 11:20 98.5 F 66 16 137/63 95 08/10/21 07:32 97.1 F 59 20 154/88 H 99 Anesthesia: General Endotracheal-GETA Mental Status: Awake Pain Control: Satisfactory Nausea/Vomiting: None Hydration: Adequate Anesthesia-Related Issues: No Anes. Related Issues
== END 2021-08-10 13:32 | disposition home or self-care (01) | DRG 341 ==
LOC: HO.ED 08-09 02:53 → HO.EDOVER 08-09 03:10 → HO.IMC 08-09 19:08
PROVIDERS: Admitting Provider Surgery; Emergency Provider Student in an Organized Health Care Education/Training Program; PCP Physician Assistant Medical; Visit Provider Surgery
PROC: 0DTJ4ZZ Resection of Appendix, Percutaneous Endoscopic Approach (ICD-10-PCS; CPT 44970; principal; 2021-08-09 15:40)
DX: K35.80 Unspecified acute appendicitis (principal); U07.1 COVID-19; F41.9 Anxiety disorder, unspecified; I10 Essential (primary) hypertension; K38.1 Appendicular concretions; Z87.442 Personal history of urinary calculi
CPT/HCPCS: 36415; 74177; 80048; 80053; 81003; 81025; 82947; 83605; 83690; 85025; 87040; 87635; 88304; 96361; 96365; 96375; 99285; J0131; J1100; J1170; J1885; J2405; J2543; J3010; Q9967

== ENCOUNTER → 2021-08-16 10:39 | Outpatient (BNVA) | payer OTHER, SELFPAY | PROVIDERS: PCP Physician Assistant Medical; Visit Provider Surgery | DX: Z13.89 Encounter for screening for other disorder (principal) ==